=== PATIENT | female | born 1960 | race Caucasian/White ===

== ENCOUNTER → 2016-10-08 | Outpatient (CLI) | payer BC, OTHER | END | disposition home or self-care (01) | LOC: LAB 09:01 | DX: Z00.5 Encounter for examination of potential donor of organ and tissue (principal) | CPT/HCPCS: 36415 ==

== ENCOUNTER 2017-03-01 11:39 | Emergency (ER) | payer BC, OTHER ==
[~2017-03-01] VITALS: Ht 157.5 cm; Wt 81.6 kg
[2017-03-01] MEDS ORDERED: IV NORMAL SALINE 1000ML BAG 1,000 ML IV SCH (12:09)
[2017-03-01] MEDS ORDERED: fentaNYL PF VIAL 100 MCG/2 ML VIAL IV PRN (12:15)
[2017-03-01] MEDS ORDERED: ONDANSETRON PF 4 MG/2 ML VIAL. IV ONE ×2 (12:15→14:00)
--- NOTE | 2017-03-01 12:16 | PHYS DOC ---
Past Medical History Past Medical History: High Cholesterol, Hypertension Past Surgical History: Hysterectomy, Oophorectomy Alcohol Use: Occasionally Drug Use: None Adult General Chief Complaint Chief Complaint: ABDOMINAL PAIN HPI HPI Patient is a 56 year old female who drove herself to the emergency department complaining of abdominal pain. Patient states she was waked up about 2 AM with crampy abdominal pain. It felt like she had to vomit or have diarrhea area the pain will start mid abdomen around her umbilicus and radiates outward and make her think that she is going to throw up or have diarrhea. She did throw up once and she had a small amount of diarrhea once, no blood. The pain has persisted for about 10 hours and got maybe a little bit worse so she decided to come in. She's never had pain like this before. She's never had a bowel obstruction. Surgical history positive for hysterectomy, BSO. PCP Ani Amaya in the [place] office. Patient is treated for hypertension, high cholesterol, depression with Lexapro, Cozaar, Lipitor. 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 Review of Systems Review of Systems Constitutional: She has felt hot and cold but not measured her temperature Eyes: Denies change in visual acuity, redness, or eye pain [] HENT: Denies nasal congestion or sore throat [] Respiratory: Denies cough or shortness of breath [] Cardiovascular: Denies chest pain GI: As in history of present illness : Denies dysuria or hematuria [] Musculoskeletal: Denies back pain or joint pain [] Integument: Denies rash or skin lesions [] Neurologic: Denies headache, focal weakness or sensory changes [] Current Medications Current Medications Current Medications Medications (Trade) Dose Ordered Sig/Odalys Start Time Stop Time Status Last Admin Dose Admin Fentanyl Citrate (Fentanyl 2ml Vial) 50 mcg PRN Q15MIN PRN 03/01/17 12:15 03/01/17 15:00 DC 03/01/17 12:33 50 MCG Info (Do NOT chart on this entry -- for MONITORING) 1 each PRN DAILY PRN 03/01/17 12:30 03/01/17 15:00 DC Iohexol (Omnipaque 300 Mg/ml) 75 ml 1X ONCE 03/01/17 12:30 03/01/17 12:31 DC 03/01/17 12:30 75 ML Ondansetron HCl (Zofran) 4 mg 1X ONCE 03/01/17 14:00 03/01/17 14:02 DC 03/01/17 14:15 4 MG Sodium Chloride 1,000 ml @ 100 mls/hr Q10H 03/01/17 12:09 03/01/17 15:00 DC 03/01/17 12:33 100 MLS/HR Allergies Allergies Allergies Coded Allergies Type Severity Reaction Last Updated Verified amoxicillin Allergy Intermediate Rash 03/01/17 Yes ampicillin Allergy Intermediate Rash 03/01/17 Yes Sulfa (Sulfonamide Antibiotics) Adverse Reaction Intermediate Nausea and Vomiting 03/01/17 Yes Physical Exam Physical Exam Constitutional: Well developed, well nourished, no acute distress, non-toxic appearance. Alert, mentating normally. HENT: Normocephalic, atraumatic, bilateral external ears normal, nose normal. [] Eyes: conjunctiva normal, no discharge. [] Neck: Normal range of motion, no stridor. [] Cardiovascular:Heart rate regular rhythm, no murmur [] Lungs & Thorax: Bilateral breath sounds clear to auscultation [] Abdomen: Bowel sounds normal, soft, mildly distended, no masses, no pulsatile masses. Mild tenderness to palpation just above the umbilicus. No right lower quadrant tenderness. No rebound or guarding. Skin: Warm, dry, no erythema, no rash. [] Extremities: No tenderness, no cyanosis, no clubbing, ROM intact, no edema. [] Neurologic: Alert and oriented X 3, normal motor function, normal sensory function, no focal deficits noted. [] Current Patient Data Vital Signs Vital Signs Date Time Temp Pulse Resp B/P (MAP) Pulse Ox O2 Delivery O2 Flow Rate FiO2 03/01/17 14:30 61 19 145/79 (101) 94 03/01/17 12:33 Room Air 03/01/17 12:02 98.4 98.4 Lab Values Laboratory Tests Test 03/01/17 11:45 03/01/17 11:49 Urine Collection Type Unknown Urine Color Yellow Urine Clarity Turbid Urine pH 5.5 Urine Specific [place] >=1.030 Urine Protein Negative mg/dL (NEG-TRACE) Urine Glucose (UA) Negative mg/dL (NEG) Urine Ketones (Stick) 15 mg/dL (NEG) Urine Blood Trace (NEG) Urine Nitrite Negative (NEG) Urine Bilirubin Negative (NEG) Urine Urobilinogen Dipstick 0.2 mg/dL (0.2 mg/dL) Urine Leukocyte Esterase Negative (NEG) Urine RBC 0 /HPF (0-2) Urine WBC 0 /HPF (0-4) Urine Squamous Epithelial Cells Occ /LPF Urine Amorphous Sediment Present /HPF Urine Bacteria 0 /HPF (0-FEW) White Blood Count 8.2 x10^3/uL (4.0-11.0) Red Blood Count 4.69 x10^6/uL (3.50-5.40) Hemoglobin 14.8 g/dL (12.0-15.5) Hematocrit 43.4 % (36.0-47.0) Mean Corpuscular Volume 93 fL (79-100) Mean Corpuscular Hemoglobin 32 pg (25-35) Mean Corpuscular Hemoglobin Concent 34 g/dL (31-37) Red Cell Distribution Width 12.6 % (11.5-14.5) Platelet Count 189 x10^3/uL (140-400) Neutrophils (%) (Auto) 91 % (31-73) H Lymphocytes (%) (Auto) 5 % (24-48) L Monocytes (%) (Auto) 4 % (0-9) Eosinophils (%) (Auto) 1 % (0-3) Basophils (%) (Auto) 0 % (0-3) Neutrophils # (Auto) 7.5 x10^3uL (1.8-7.7) Lymphocytes # (Auto) 0.4 x10^3/uL (1.0-4.8) L Monocytes # (Auto) 0.3 x10^3/uL (0.0-1.1) Eosinophils # (Auto) 0.1 x10^3/uL (0.0-0.7) Basophils # (Auto) 0.0 x10^3/uL (0.0-0.2) Segmented Neutrophils % 81 % (35-66) H Band Neutrophils % 10 % (0-9) H Lymphocytes % 4 % (24-48) L Monocytes % 4 % (0-10) Eosinophils % 1 % (0-5) Platelet Estimate Adequate (ADEQUATE) Sodium Level 143 mmol/L (136-145) Potassium Level 3.7 mmol/L (3.5-5.1) Chloride Level 105 mmol/L (98-107) Carbon Dioxide Level 27 mmol/L (21-32) Anion Gap 11 (6-14) Blood Urea Nitrogen 20 mg/dL (7-20) Creatinine 0.6 mg/dL (0.6-1.0) Estimated GFR (Cockcroft-Gault) 103.0 BUN/Creatinine Ratio 33 (6-20) H Glucose Level 102 mg/dL (70-99) H Calcium Level 8.5 mg/dL (8.5-10.1) Total Bilirubin 1.9 mg/dL (0.2-1.0) H Aspartate Amino Transferase (AST) 29 U/L (15-37) Alanine Aminotransferase (ALT) 40 U/L (14-59) Alkaline Phosphatase 95 U/L (46-116) Total Protein 7.0 g/dL (6.4-8.2) Albumin 3.8 g/dL (3.4-5.0) Albumin/Globulin Ratio 1.2 (1.0-1.7) Lipase 188 U/L (73-393) Laboratory Tests 03/01/17 11:49 Laboratory Tests 03/01/17 11:49 EKG EKG [] Radiology/Procedures Radiology/Procedures CT scan of the abdomen and pelvis read by the radiologist. No acute findings. [] Course & Med Decision Making Course & Med Decision Making Pertinent Labs and Imaging studies reviewed. (See chart for details) 56-year-old female in good general health presents with a 10 hour history of worsening crampy abdominal pain, one episode each of vomiting and diarrhea. I discussed with the patient that we will give her some IV pain and nausea medicine and get some labs and a CT scan, she is agreeable to that plan. Patient remained stable in the emergency department without any further vomiting or diarrhea. She felt better after some IV fluids, IV pain and nausea medicine. Labs, CT scan unrevealing. I discussed with the patient the options after the reassuring results of labs and CT. I offered her observation admission for IV fluids, IV pain and nausea medication. She declined, she rather go home, she lives with family who can keep an eye on her and she will return if she gets worse. See instructions for plan. [] Dragon Disclaimer Dragon Disclaimer This electronic medical record was generated, in whole or in part, using a voice recognition dictation system. Departure Departure Impression: Primary Impression: Abdominal pain Disposition: 01 HOME, SELF-CARE Condition: STABLE Referrals: LAURITA CRUZ APRN (PCP) Patient Instructions: Abdominal Pain, [id number] Additional Instructions: We do not know what caused your abdominal pain today, but CT scan and lab tests did not show any cause, which is reassuring that we did not find any serious cause. Rest your stomach for the next 2 or 3 days, with small amounts of clear liquids. You may try one dose of Imodium, [id number] antidiarrheal, to see if that will help the cramping. If it does, you may take one dose every 6 or 8 hours for one or 2 days, do not take more than that or for longer than that. I prescribed a nausea medicine for use as needed. I prescribed a very small number of pain pills, if the pain is getting worse or lasting more than a day or 2, we do not want to cover up the pain, we need to recheck you. If anything is getting worse, or not getting better in a day or 2, return to emergency for recheck or see your doctor. Scripts Hydrocodone/Apap 5-325 (NORCO 5-325 TABLET) 1 Each Tablet 1 TAB PO PRN Q6HRS Y for PAIN for 6 Days, TAB 0 Refills Prov: MICHAEL TEAGUE MD 03/01/17 Ondansetron (ZOFRAN ODT) 4 Mg Tab.rapdis 1 TAB SL Q8HRS for NAUSEA, #10 TAB Prov: MICHAEL TEAGUE MD 03/01/17 MICHAEL TEAGUE MD March 01, 2017 12:16
[2017-03-01 12:19] LABS: BILIRUBIN,URINE NEGATIVE (NEG); GLUCOSE,URINE NEGATIVE (NEG); NITRITE,URINE NEGATIVE (NEG); PH,URINE 5.5; PROTEIN,URINE NEGATIVE (NEG-TRACE); UROBILINOGEN,URINE 0.2 mg/dL (0.2 mg/dL)
[2017-03-01 12:29] LABS: BACTERIA,URINE 0 /HPF (0-FEW); RBC,URINE 0 /HPF (0-2); SQUAMOUS EPITHELIAL CELL,UR OCC /LPF; WBC,URINE 0 /HPF (0-4)
[2017-03-01] MEDS ORDERED: CONTRAST GIVEN MC PRN (12:30)
[2017-03-01] MEDS ORDERED: IOHEXOL 300 MG/ML 75 ML VIAL IV ONE (12:30)
[2017-03-01 12:39] LABS: BASO % 0 % (0-3); EOS % 1 % (0-3); HEMATOCRIT 43.4 % (36.0-47.0); HEMOGLOBIN 14.8 g/dL (12.0-15.5); LYMPH # 0.4 x10^3/uL (1.0-4.8); LYMPH % 5 % (24-48); MEAN CORPUSCULAR HEMOGLOBIN 32 pg (25-35); MEAN CORPUSCULAR HGB CONC 34 g/dL (31-37); MEAN CORPUSCULAR VOLUME 93 fL (79-100); MONO % 4 % (0-9); NEUT % 91 % (31-73); PLATELET COUNT 189 x10^3/uL (140-400); RED BLOOD COUNT 4.69 x10^6/uL (3.50-5.40); RED CELL DISTRIBUTION WIDTH 12.6 % (11.5-14.5); WHITE BLOOD COUNT 8.2 x10^3/uL (4.0-11.0)
[2017-03-01 12:58] LABS: CALCIUM 8.5 mg/dL (8.5-10.1); CREATININE 0.6 mg/dL (0.6-1.0); POTASSIUM 3.7 mmol/L (3.5-5.1)
[2017-03-01 13:04] LABS: ALBUMIN 3.8 g/dL (3.4-5.0); ALBUMIN/GLOBULIN RATIO 1.2 (1.0-1.7); TOTAL BILIRUBIN 1.9 mg/dL (0.2-1.0)
[2017-03-01 13:17] LABS: % EOS 1 % (0-5); PLT ESTIMATE ADEQUATE (ADEQUATE)
--- NOTE | 2017-03-01 13:34 | RAD ---
EXAM: Abdomen and pelvis CT with intravenous contrast. HISTORY: Cramping. TECHNIQUE: Computed tomographic images of the abdomen and pelvis were obtained following the administration of 70 cc Omnipaque 300 intravenous contrast. Multiplanar reformatting was performed. COMPARISON: None. FINDINGS: Evaluation of the lower thorax is unremarkable. There is a 2.0 cm simple cyst within the hepatic dome. There is slight fatty infiltration of the liver along the falciform ligament. The gallbladder, spleen and adrenal glands are unremarkable. There is subtle hypodensity within the pancreatic head due to slight fatty infiltration. No suspicious pancreatic lesion is seen. There is a 2 mm cyst or angiomyolipoma within the upper pole of the left kidney. The appendix is normal in appearance. No abnormally thickened or dilated loop of bowel is seen. There is no pathologically enlarged lymph node. The bladder is unremarkable. The uterus is surgically absent. There is lumbar hyperlordosis and scoliosis. There is grade 1 anterolisthesis of L4 on L5. No suspicious osseous lesion is seen. IMPRESSION: 1. No acute abdominal or pelvic finding. 2. 2.0 cm simple appearing hepatic cyst. 3. 2 mm cyst or tiny angiomyolipoma within the upper pole the left kidney, too small to characterize. This is of no clinical significance. 3. 1.5 cm subtle region of hypodensity within the pancreatic head, the appearance of which favors slight benign fatty infiltration. PQRS Compliance Statement: One or more of the following individualized dose reduction techniques were utilized for this examination: 1. Automated exposure control 2. Adjustment of the mA and/or kV according to patient size 3. Use of iterative reconstruction technique
[2017-03-01 14:30] VITALS: BP 145/79
[2017-03-01] MEDS ORDERED: ONDA4TAB10 SL (14:31)
[2017-03-01] MEDS ORDERED: HYDR-971 PO (14:31)
== END 2017-03-01 15:00 | disposition home or self-care (01) ==
LOC: ER 11:39
DX: R10.33 Periumbilical pain (principal); E78.00 Pure hypercholesterolemia, unspecified; I10 Essential (primary) hypertension; Z90.710 Acquired absence of both cervix and uterus; Z90.722 Acquired absence of ovaries, bilateral; Z88.1 Allergy status to other antibiotic agents; Z88.2 Allergy status to sulfonamides
CPT/HCPCS: 36415; 74177; 80053; 81001; 83690; 85007; 85027; 96361; 96374; 96375; 99285; J2405; J3010; J7030; Q9967

== ENCOUNTER → 2018-07-15 | Outpatient (CLI) | payer BC ==
[~2018-07-15] MED LIST: HYDR-971 PO; ONDA4TAB10 SL
--- NOTE | 2018-07-15 16:55 | KCIC ---
EXAM: Bilateral screening mammogram. HISTORY: 58-year-old female presents for screening mammography. TECHNIQUE: Full-field digital craniocaudal and mediolateral oblique views of both breasts are obtained for evaluation. Computer aided detection with [employer] software version 9.3 was applied. COMPARISON: 06/24/2016 BREAST PARENCHYMAL DENSITY: Level B - Scattered fibroglandular densities. FINDINGS: There is no new suspicious mass, microcalcification or region of architectural distortion. IMPRESSION: BI-RADS Category 2: Benign finding(s). RECOMMENDATION: Annual mammography is recommended. If your mammogram demonstrates that you have dense breast tissue, which could hide abnormalities, and if you have other risk factors for breast cancer that have been identified, you might benefit from supplemental screening tests that may be suggested by your ordering physician. Dense breast tissue, in and of itself, is a relatively common condition. This information is not provided to cause undue concern, but rather to raise your awareness and to promote discussion with your physician regarding the presence of other risk factors, in addition to dense breast tissue. A report of your mammography results will be sent to you and your physician. You should contact your physician if you have any questions or concerns regarding this report. Mammography is a sensitive method for finding small breast cancers, but it does not detect them all and is not a substitute for careful clinical examination. A negative mammogram does not negate a clinically suspicious finding and should not result in delay in biopsying a clinically suspicious abnormality. PQRS compliance statement - Patient information was entered into a reminder system with a target due date for the next mammogram. "Our facility is accredited by the [employer] Mammography Program." Electronically signed by: Yaritza Maravilla MD (07/15/2018 4:52 PM) [id number]
== END | disposition home or self-care (01) ==
LOC: KCIC MAMMO 12:45
PROVIDERS: ATTEND Nurse Practitioner Family
DX: Z12.31 Encounter for screening mammogram for malignant neoplasm of breast (principal)
CPT/HCPCS: 77067

== ENCOUNTER → 2018-09-16 | Outpatient (CLI) | payer BC ==
[~2018-09-16] MED LIST changes: +HYDR-3164 PO; -HYDR-971 PO
--- NOTE | 2018-09-16 09:50 | KCIC ---
DOPPLER CAROTID BILAT Clinical Indication: Dyslipidemia. Procedure: Pulsed wave and color-flow duplex imaging was utilized to evaluate the extracranial carotid arteries. Comparison: None. Findings: RIGHT SIDE: Mild atherosclerotic plaque on byrd-scale images. Distal CCA peak systolic velocity 89 cm/sec. ICA peak systolic velocity 106 cm/sec. The right ICA/CCA ratio is 1.2. Flow within the right vertebral artery and right ECA is directed antegrade. LEFT SIDE: Mild atherosclerotic plaque on byrd-scale images. Distal CCA peak systolic velocity 73 cm/sec. ICA peak systolic velocity 87 cm/sec. The left ICA/CCA ratio is 1.2. Flow within the left vertebral artery and left ECA is directed antegrade. Carotid legend: CCA = common carotid artery ICA = internal carotid artery ECA = external carotid artery IMPRESSION: No hemodynamically significant stenosis. Electronically signed by: Braxton Gray DO (09/16/2018 9:46 AM) [facility]
--- NOTE | 2018-09-16 10:28 | KCIC ---
[facility] Compliance Statement: One or more of the following individualized dose reduction techniques were utilized for this examination: 1. Automated exposure control 2. Adjustment of the mA and/or kV according to patient size 3. Use of iterative reconstruction technique Calcium scoring cardiac CT: 09/16/2018 9:00 AM Clinical Indication: Dyslipidemia,, history of cardiovascular disease Comparison: None. Technique: Non-contrast enhanced prospectively EKG triggered CT of the heart for coronary calcium scoring was performed. Post-processing included analysis of calcium scoring (Agatston score) . Findings: Calcium score and Cardiac findings: CORONARY ARTERIES: 1. Left main coronary artery: 0. 2. Left anterior descending coronary artery: 0. 3. Left circumflex coronary artery: 0. 4. Right coronary artery: 0. 5. Total coronary calcium score: 0. HEART AND PERICARDIUM: Heart is normal in size. There is no pericardial effusion. Noncardiac findings: The lack of intravenous contrast limits evaluation of the mediastinum and joanne. LUNGS: No acute area of infiltrative or consolidative change. LARGE AIRWAYS: Central airways are patent. PLEURA: No pleural effusion or thickening. MEDIASTINUM AND JOANNE: No mediastinal or hilar lymphadenopathy or soft tissue mass. VESSELS: The visualized portion thoracic aorta is normal in course and caliber. CHEST WALL: Normal. UPPER ABDOMEN: 2 cm simple cyst is identified in the right hepatic lobe. BONES: No acute fracture, blastic or osteolytic lesion. Impression: 1. Total coronary calcium score of 0 as detailed above. No plaque is present. Very low risk for cardiovascular disease. 2. Incidental 2 cm simple cyst in the right hepatic dome. Electronically signed by: Valentina Hardy MD (09/16/2018 10:24 AM) [id number]
== END | disposition home or self-care (01) ==
LOC: KCIC US 07:52
PROVIDERS: ATTEND Nurse Practitioner Family
DX: I70.293 Other atherosclerosis of native arteries of extremities, bilateral legs (principal); E78.5 Hyperlipidemia, unspecified; K76.89 Other specified diseases of liver; I10 Essential (primary) hypertension; Z86.79 Personal history of other diseases of the circulatory system; Z82.49 Family history of ischemic heart disease and other diseases of the circulatory system
CPT/HCPCS: 75571; 93880

== ENCOUNTER → 2021-09-02 | Outpatient (CLI) | payer BC, OTHER ==
--- NOTE | 2021-09-02 11:13 | KCIC ---
Bilateral digital screening mammograms with 3-D tomosynthesis: Reason for examination: Routine screening. Comparison is made to previous study dated studies dated 07/15/2018 and 06/24/2016. Bilateral mammograms in CC and oblique projections were obtained with 2-D imaging and 3-D tomosynthes is imaging on a [employer] Inspiration unit and reviewed on the workstation. Interpretation was made with the benefit of CAD. The skin and nipples show no abnormalities. No abnormal axillary lymph nodes are seen. The breast par enchyma is predominantly fatty. (Breast density: Category A.) There are no dominant masses, suspiciou s calcifications or architectural distortion. A few benign calcifications are seen. Impression: No evidence of malignancy. Recommend routine screening. BI-RAD Category 2: Benign. "Our facility is accredited by the [employer] Mammography Program." This patient's information has been entered into a reminder system for the patient to be notified wit h the results of her examination and a target date for the next mammogram. Electronically signed by: Faiza Vigil MD (09/02/2021 11:10 AM) [id number]
== END ==
LOC: KCIC MAMMO 10:13
PROVIDERS: ATTEND Nurse Practitioner Family
DX: Z12.31 Encounter for screening mammogram for malignant neoplasm of breast (principal)
CPT/HCPCS: 77063; 77067